=== PATIENT | female | born 2000 | race Caucasian/White ===

== ENCOUNTER 2019-05-14 21:40 | Emergency (ER) | payer OTHER ==
[2019-05-14 22:03] VITALS: BP 142/89
[2019-05-14] MEDS: Lidocaine 1% MPF ** 5 ML VIAL INJ ONE (22:04)
--- NOTE | 2019-05-14 22:35 | UC ---
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 + laceration to R palm. 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 ?: No Onset/Duration: Sudden Onset, Lasting Minutes Skin Exposure Onset/Duration: Minutes Ago Timing: Constant Onset Severity: Moderate Current Severity: None Pain Intensity: 0 Pain Scale Used: 0-10 Numeric Location: Discrete - right palm - Allergy/Home Medications Allergies/Adverse Reactions: Allergies Allergy/AdvReac Type Severity Reaction Status Date / Time No Known Allergies Allergy Verified 05/14/19 22:03 Home Medications: Home Medications Desvenlafaxine Succinate [Pristiq] 25 mg PO DAILY 05/14/19 [History Confirmed ] PMH/Surg Hx/FS Hx/Imm Hx Previously Healthy: Yes - Surgical History Surgical History: Yes Surgery Procedure, Year, and Place: "mouth surgery" - Family History Known Family History: Positive: Non-Contributory - Social History Alcohol Use: None Substance Use Type: None Smoking Status (MU): Never Smoked Tobacco Review of Systems All Other Systems Reviewed And Are Negative: Yes Constitutional: Positive: Negative Skin: Positive: Other - laceration Musculoskeletal: Positive: Negative, Edema Neurological: Positive: Negative Psychological: Positive: Negative Is Patient Immunocompromised?: No Physical Exam Triage Information Reviewed: Yes Appearance: Well-Appearing, No Pain Distress, Well-Nourished Vital Signs: Initial Vital Signs Temp 99.1 F 05/14/19 21:58 Pulse 82 05/14/19 21:58 Resp 18 05/14/19 21:58 BP 142/89 05/14/19 21:58 Pulse Ox 99 05/14/19 21:58 Vital Signs Reviewed: Yes Eyes: Positive: Conjunctiva Clear Musculoskeletal: Positive: Strength Intact, ROM Intact, No Edema Neurological Exam: Normal Psychological Exam: Normal Skin Exam: Normal Skin: Positive: Other - laceration to right palm, ~ 4cm x 1cm x 1cm, tendons, sensation, appearing intact Laceration Repair - Laceration Repair 1 Description: Linear Laceration Size After Repair: Length (cm) - 4, Width (mm) - 1, Depth (mm) - 1 Debridement: minimal Type Injection: Local Anesthesia Used: 1.0% Lido Cleansing Completed Via Routine Prep: Yes Irrigation With Pressure Irrigation Device: Yes Closure Material: Sutures Closure Method: Single Layer Suture Of: Skin Suture Type: Nylon - 5 Course/Dx - Course Course Of Treatment: - Suture removal in 7-10 days, return to clinic - REturn with redness, drainage, increased pain, decreased movement - Keep area covered at all times until sutures removed - Elevate hand to decrease swelling - Motrin/ Tylenol as needed for pain - Light duty at work only to ensure proper healing laceraiton repair, uncomplication, follow for suture removal within 7-10 days - Diagnoses Provider Diagnosis: Hand laceration Discharge - Sign-Out/Discharge Documenting (check all that apply): Patient Departure All imaging exams completed and their final reports reviewed: No Studies - Discharge Plan Condition: Stable Disposition: HOME Patient Education Materials: Care For Your Stitches (ED), Laceration (ED) Referrals: No Primary Care Phys,NOPCP [Primary Care Provider] - Additional Instructions: - Suture removal in 7-10 days, return to clinic - REturn with redness, drainage, increased pain, decreased movement - Keep area covered at all times until sutures removed - Elevate hand to decrease swelling - Motrin/ Tylenol as needed for pain - Light duty at work only to ensure proper healing - Billing Disposition and Condition Condition: STABLE Disposition: Home
== END 2019-05-14 22:37 | disposition home or self-care (01) ==
LOC: UCEAST 21:40
DX: S61.411A Laceration without foreign body of right hand, initial encounter (principal); W31.89XA Contact with other specified machinery, initial encounter; Y92.9 Unspecified place or not applicable
CPT/HCPCS: 12002; 99201; G0463

== ENCOUNTER 2019-05-22 13:14 | Emergency (ER) | payer OTHER ==
[2019-05-22 14:01] VITALS: BP 125/85
--- NOTE | 2019-05-22 14:19 | UC ---
HPI Wound/Suture Re-check - HPI Summary HPI Summary: 18 yo female s/p lac to right palm 8 days ago here for suture removal no complaints - History Of Current Complaint Chief Complaint: UCLaceration Stated Complaint: SUTURE REMOVAL Hx Obtained From: Patient Hx Last Menstrual Period: 05/08/19 Onset/Duration: Sudden Onset Pain Intensity: 0 Pain Scale Used: 0-10 Numeric Procedure Type: lac repair Hands: 1 - lac - Allergies/Home Medications Allergies/Adverse Reactions: Allergies Allergy/AdvReac Type Severity Reaction Status Date / Time tree nut Allergy Mild Swelling Verified 05/22/19 14:02 Of Face,Lips,& Throat PMH/Surg Hx/FS Hx/Imm Hx Previously Healthy: Yes - Surgical History Surgical History: Yes Surgery Procedure, Year, and Place: "mouth surgery" - Family History Known Family History: Positive: Non-Contributory - Social History Alcohol Use: Occasionally Substance Use Type: None Smoking Status (MU): Never Smoked Tobacco Review of Systems All Other Systems Reviewed And Are Negative: Yes Constitutional: Positive: Negative Skin: Positive: Bruising Eyes: Positive: Negative ENT: Positive: Negative Respiratory: Positive: Negative Cardiovascular: Positive: Negative Gastrointestinal: Positive: Negative Genitourinary: Positive: Negative Motor: Positive: Negative Neurovascular: Positive: Negative Musculoskeletal: Positive: Negative Neurological: Positive: Negative Psychological: Positive: Negative Physical Exam Triage Information Reviewed: Yes Appearance: Well-Appearing, No Pain Distress, Well-Nourished Vital Signs: Initial Vital Signs Temp 98.7 F 05/22/19 13:59 Pulse 92 05/22/19 13:59 Resp 18 05/22/19 13:59 BP 125/85 05/22/19 13:59 Pulse Ox 100 05/22/19 13:59 Vital Signs Reviewed: Yes Eyes: Positive: Conjunctiva Clear ENT: Positive: Hearing grossly normal. Negative: Nasal congestion, Nasal drainage, Tonsillar exudate, Trismus, Muffled voice, Hoarse voice Neck: Positive: Supple Respiratory: Positive: No respiratory distress, No accessory muscle use, Respiratory distress Musculoskeletal: Positive: ROM Intact, No Edema Neurological: Positive: Alert Psychological Exam: Normal Skin Exam: Other - proximal half of right palm lac looks like it will open up if sutures removed Course/Dx - Diagnosis Provider Diagnosis: Encounter for re-check of laceration wound Discharge - Sign-Out/Discharge Documenting (check all that apply): Patient Departure All imaging exams completed and their final reports reviewed: No Studies - Discharge Plan Condition: Stable Disposition: HOME Referrals: No Primary Care Phys,NOPCP [Primary Care Provider] - Additional Instructions: continue wound care recheck in 5-6 days I am worried that you lac will reopen if the sutures are removed today - Billing Disposition and Condition Condition: STABLE Disposition: Home
== END 2019-05-22 14:42 | disposition home or self-care (01) ==
LOC: UCEAST 13:14
DX: S61.411D Laceration without foreign body of right hand, subsequent encounter (principal); X58.XXXD Exposure to other specified factors, subsequent encounter
CPT/HCPCS: 99211; G0463

== ENCOUNTER 2019-05-28 13:20 | Emergency (ER) | payer OTHER ==
[2019-05-28 13:33] VITALS: BP 126/81
--- NOTE | 2019-05-28 13:46 | UC ---
HPI Wound/Suture Re-check - HPI Summary HPI Summary: here for suture removal laceration of right hand / palm sutures were placed at [facility] on 05/14 has no complaints, wound is healing well, no redness, no discharge or bleeding - History Of Current Complaint Chief Complaint: UCLaceration Stated Complaint: STITCH REMOVAL Time Seen by Provider: 05/28/19 13:23 Hx Obtained From: Patient Hx Last Menstrual Period: 05/05/19 Onset/Duration: Sudden Onset, Lasting Days - 14 days, Still Present Severity: Moderate Pain Intensity: 0 Procedure Type: suture removal Surgery Date: 05/14/19 - Allergies/Home Medications Allergies/Adverse Reactions: Allergies Allergy/AdvReac Type Severity Reaction Status Date / Time tree nut Allergy Mild Swelling Verified 05/28/19 13:33 Of Face,Lips,& Throat PMH/Surg Hx/FS Hx/Imm Hx Previously Healthy: Yes - Surgical History Surgical History: Yes Surgery Procedure, Year, and Place: "mouth surgery" - Family History Known Family History: Positive: Non-Contributory - Social History Alcohol Use: Occasionally Substance Use Type: None Smoking Status (MU): Never Smoked Tobacco Review of Systems All Other Systems Reviewed And Are Negative: Yes Constitutional: Positive: Negative Skin: Positive: Negative Eyes: Positive: Negative ENT: Positive: Negative Is Patient Immunocompromised?: No Physical Exam Triage Information Reviewed: Yes Appearance: Well-Appearing, No Pain Distress, Well-Nourished Vital Signs: Initial Vital Signs Temp 98.7 F 05/28/19 13:30 Pulse 86 05/28/19 13:30 Resp 16 05/28/19 13:30 BP 126/81 05/28/19 13:30 Pulse Ox 100 05/28/19 13:30 Vital Signs Reviewed: Yes Eye Exam: Normal Eyes: Positive: Conjunctiva Clear ENT: Positive: Normal ENT inspection, Hearing grossly normal, Pharynx normal Respiratory Exam: Normal Respiratory: Positive: Chest non-tender, Lungs clear, Normal breath sounds Cardiovascular: Positive: RRR, No Murmur, Pulses Normal Skin: Positive: Other - laceration right palm : 5 cm in length , healing well, no erythema, no swelling, no tenderness sutures were removed Course/Dx - Diagnosis Provider Diagnosis: Visit for suture removal Discharge - Sign-Out/Discharge Documenting (check all that apply): Patient Departure All imaging exams completed and their final reports reviewed: No Studies - Discharge Plan Condition: Stable Disposition: HOME Patient Education Materials: Stitches Removal (ED) Referrals: No Primary Care Phys,NOPCP [Primary Care Provider] - If Needed - Billing Disposition and Condition Condition: STABLE Disposition: Home
== END 2019-05-28 13:48 | disposition home or self-care (01) ==
LOC: UCEAST 13:20
DX: Z48.02 Encounter for removal of sutures (principal)